=== PATIENT | male | born 1990 | race Caucasian/White ===

== ENCOUNTER 2017-04-27 11:46 | Emergency (ER) | payer MEDICAID ==
[~2017-04-27] VITALS: Ht 165.1 cm; Wt 56.0 kg
[2017-04-27] MEDS ORDERED: ketorolac trometh. 30mg/ml inj. IM ONE (12:45)
[2017-04-27 13:14] VITALS: BP 93/66
== END 2017-04-27 13:16 | disposition home or self-care (01) ==
LOC: ER 11:47
DX: H60.91 Unspecified otitis externa, right ear (principal); Z88.2 Allergy status to sulfonamides
CPT/HCPCS: 96372; 99283; J1885

== ENCOUNTER 2018-03-08 15:50 | Emergency (ER) | payer MEDICAID ==
[~2018-03-08] VITALS: Ht 165.1 cm; Wt 61.2 kg
[2018-03-08 15:51] VITALS: BP 129/81
[2018-03-08] MEDS ORDERED: PENI500T2 PO (16:00)
== END 2018-03-08 16:13 | disposition home or self-care (01) ==
LOC: ER 15:50
DX: K04.7 Periapical abscess without sinus (principal); Z88.2 Allergy status to sulfonamides; Z79.2 Long term (current) use of antibiotics
CPT/HCPCS: 99283

== ENCOUNTER 2021-11-27 17:11 | Emergency (ER) | payer MEDICAID ==
[~2021-11-27] VITALS: Ht 162.6 cm; Wt 135.0 kg
[2021-11-27 17:40] VITALS: BP 118/70
[2021-11-27] MEDS ORDERED: AMOX-115 PO (19:04)
== END 2021-11-27 19:49 | disposition home or self-care (01) ==
LOC: ER 17:12
DX: L53.8 Other specified erythematous conditions (principal); H66.91 Otitis media, unspecified, right ear; F41.9 Anxiety disorder, unspecified; F12.10 Cannabis abuse, uncomplicated; Z88.2 Allergy status to sulfonamides; Z79.899 Other long term (current) drug therapy
CPT/HCPCS: 99283

== ENCOUNTER 2022-10-14 12:35 | Emergency (ER) | payer MEDICAID ==
[~2022-10-14] VITALS: Ht 167.6 cm; Wt 72.5 kg
[2022-10-14 12:45] VITALS: BP 105/64; PULSE 80; RESP 20; TEMP 97.5; O2SAT 97
== END 2022-10-14 15:24 | disposition home or self-care (01) ==
LOC: ER 12:36
DX: M25.531 Pain in right wrist (principal); F41.9 Anxiety disorder, unspecified; Z88.2 Allergy status to sulfonamides; Z79.899 Other long term (current) drug therapy
CPT/HCPCS: 73110; 99283

== ENCOUNTER 2022-11-24 09:55 | Emergency (ER) | payer MEDICAID ==
[~2022-11-24] VITALS: Ht 170.2 cm; Wt 57.4 kg
[2022-11-24 09:58] VITALS: BP 118/79; PULSE 83; RESP 18; TEMP 97.2; O2SAT 97
--- NOTE | 2022-11-24 10:48 | NUR ---
PT STATES HE IS CURRENTLY 3 DAYS INTO A COURSE OF AMOXILLIN PRESCRIBED BY [facility].
== END 2022-11-24 11:41 | disposition home or self-care (01) ==
LOC: ER 09:55
DX: S60.421A Blister (nonthermal) of left index finger, initial encounter (principal); F12.90 Cannabis use, unspecified, uncomplicated; F41.9 Anxiety disorder, unspecified; Z88.2 Allergy status to sulfonamides; X58.XXXA Exposure to other specified factors, initial encounter; Y93.89 Activity, other specified; Y92.89 Other specified places as the place of occurrence of the external cause; Y99.8 Other external cause status
CPT/HCPCS: 87070; 87077; 87186; 99283

== ENCOUNTER 2024-08-11 09:42 | Emergency (ER) | payer MEDICAID ==
[~2024-08-11] VITALS: Ht 167.6 cm; Wt 54.3 kg
[2024-08-11 10:05] VITALS: BP 116/66; PULSE 92; RESP 15; O2SAT 97
--- NOTE | 2024-08-11 10:56 | Physician Documentation ---
History of Present Illness ~ Chief Complaint: Medical Clearance Stated Complaint: FOOT PAIN AND MED CLEARANCE Time Seen by MD: 10:37 [facility] Presents for medical clearance for an [facility] life discovery and detox. He denies any heavy drug use reports recent marijuana use. Denies any alcohol use Day of Onset: Aug 11, 2024 Tetanus within 5 years?: Yes Medication Reconciliation Allergies: Coded Allergies: Sulfa (Sulfonamide Antibiotics) (Verified Adverse Reaction, Unknown, NAUSEA, HEADACHES, VOMITING, 11/24/22) Past Medical History Past Medical History: Anxiety Past Surgical History: noncontributory Alcohol Use: None Drug Use: marijuana Lives with: Family Lives In: Home Review of Systems All Other Systems at this time: Reviewed and Negative Physical Exam Vital Signs: Temperature: 97.9, Source: Temporal, Heart Rate: 92, Respiratory Rate: 15, BP: 116/66, Pulse Oximetry: 97, Weight: 54.300 Physical Exam General: Alert, no apparent distress. HEENT: PERRL, EOMI, no injection, moist mucous membranes. Neck: Full range of motion. Respiratory: Lungs clear, no respiratory distress. Chest: No accessory muscle use. Cardiovascular: Regular rate and rhythm, no murmurs. Gastrointestinal: Soft, nontender, nondistended. Bowels sounds present. Extremities: Normal range of motion, no deformity. Neurologic: Oriented x4. Psychiatric: Normal mood and affect. Skin: Normal color, warm and dry. No edema, no ecchymosis. Progress Results/Orders Results/Orders Vital Signs 08/11/24 08/11/24 10:05 11:31 Temp 97.9 97.9 Pulse 92 Resp 15 B/P (MAP) 116/66 Pulse Ox 97 Medical Decision Making Additional info obtained from: old records Findings Not present intoxicated or under the influence. Nor does he report any drug use or substance use that would lead me to believe that he may go into withdrawals . at this point, I do not see anything of concerns about discharged him and medically clearing him for recover Differential Dx:Considerations: Include: Intoxication-Alcohol, Intoxication- Other drug, Personality disorder, Substance abuse disorder, Acute delirium, Closed head injury, Cervical spine injury, Skull fracture, Fracture(s), Abrasion, Contusion, Foreign body, Hematoma, Laceration, Alcohol withdrawl syndrom, Encephalopathy, Hepatitis, Medically stable, Other Departure Disposition: 01 HOME / SELF CARE / HOMELESS Impression: Primary Impression: General medical exam Condition: Stable Discharge Instructions: Medical Screening Exam Additional Instructions: medically Cleared for recovery Referrals: NO PRIMARY CARE PROVIDER (PCP) Signature Scribe Signature: f Attestation: The note accurately reflects work and decisions made by me.Claude Archer NP 08/11/24 17:46 CLAUDE BAL NP Aug 11, 2024 10:56
[2024-08-11 11:31] VITALS: TEMP 97.9
== END 2024-08-11 11:32 | disposition home or self-care (01) ==
LOC: ER 09:42
DX: Z02.9 Encounter for administrative examinations, unspecified (principal); F12.90 Cannabis use, unspecified, uncomplicated; F41.9 Anxiety disorder, unspecified; Z88.2 Allergy status to sulfonamides
CPT/HCPCS: 99281